=== PATIENT | male | born 1975 | race Caucasian/White ===

== ENCOUNTER → 2016-11-05 | Outpatient (CLI) | payer BC | LOC: BMCIMAGING 08:35 | PROVIDERS: ATTEND Registered Nurse General Practice | DX: R10.12 Left upper quadrant pain (principal) ==

== ENCOUNTER → 2017-11-19 | Outpatient (CLI) | payer OTHER | LOC: FIMAGING 15:43 | PROVIDERS: ATTEND Family Medicine | DX: J98.4 Other disorders of lung (principal) ==